=== PATIENT | female | born 1985 | race Caucasian/White ===

== ENCOUNTER 2024-05-05 09:56 | Emergency (ER) | payer BC ==
[2024-05-05] MEDS: Acetaminophen/HYDROcodone 325-5 MG Tab PO ONE (10:44)
[2024-05-05] MEDS: Propofol 200 MG/20 ML SDV IVPUSH ONE (11:22)
[2024-05-05] MEDS: Sodium Chloride 0.9% 10 ML Syringe FLUSH PRN (11:27)
== END 2024-05-05 13:03 | disposition home or self-care (01) ==
LOC: JD.ED 09:56
DX: S43.014A Anterior dislocation of right humerus, initial encounter (principal); S43.034A Inferior dislocation of right humerus, initial encounter; Z79.899 Other long term (current) drug therapy; W01.0XXA Fall on same level from slipping, tripping and stumbling without subsequent striking against object, initial encounter; Y93.02 Activity, running; Y92.22 Religious institution as the place of occurrence of the external cause
CPT/HCPCS: 23650; 73020; 99283; A9270; J2704; 23655; 99284